=== PATIENT | female | born 2000 | race African-American/Black ===

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

== ENCOUNTER 2018-02-10 00:10 | Emergency (ER) | payer BC ==
[2018-02-10] MEDS ORDERED: levETIRAcetam In NaCl (Iso-Os) 1,500 MG in Premix Bag 1 BAG IVPB SCH (00:45)
[2018-02-10 02:03] LABS: #Basophils 0.1 thou/uL (0.0-0.2); #Eosinphils 0.1 thou/uL (0.0-0.7); #Lymphocytes 1.8 thou/uL (1.20-3.40); #Monocytes 0.5 thou/uL (0.11-0.59); #Neutrophils 4.6 thou/uL (1.40-6.50); %Basophils 0.9 % (0.0-1.0); %Lymphocytes 25.5 % (28.0-48.0); %Monocytes 7.3 % (0.0-4.0); %Neutrophils 64.3 % (31.0-61.0); Hemoglobin 15.3 g/dL (12.0-16.0); Mean Corpuscular HGB CONC 33.5 g/dL (32.0-36.0); Mean Corpuscular Hemoglobin 29.4 pg (25.0-35.0); Mean Corpuscular Volume 87.6 fL (78.0-98.0); Mean Platelet Volume 7.7 fL (7.4-10.4); Platelet Count 310 thou/uL (130-400); RBC Distribution Width 12.8 % (11.5-14.5); Red Blood Cell (RBC) Count 5.22 mill/uL (4.00-5.20); White Blood Cell (WBC) Count 7.2 thou/uL (4.8-10.8)
[2018-02-10 02:10] LABS: ALT (SGPT) 19 U/L (8-55); AST (SGOT) 19 U/L (5-30); Albumin 4.8 g/dL (3.5-5.0); Alkaline Phosphatase 94 U/L (40-150); Anion Gap 11 mmol/L (10-20); BUN (Urea Nitrogen) 8 mg/dL (8.4-21.0); Bilirubin, Total 0.6 mg/dL (0.2-1.2); Calc. Creatinine Clearance 0 mL/min (70-130); Calcium 9.8 mg/dL (7.8-10.44); Carbon Dioxide 25 mmol/L (22-29); Chloride 108 mmol/L (98-107); Estimated GFR-MDRD Greater than 90; Globulin 3.6 g/dL (2.4-3.5); Glucose 93 mg/dL (70-105); Potassium 3.7 mmol/L (3.5-5.1); Protein, Total 8.4 g/dL (6.0-8.3); Sodium 140 mmol/L (136-145)
== END 2018-02-10 03:45 | disposition home or self-care (01) ==
LOC: ERS 00:10
DX: R56.9 Unspecified convulsions (principal)
CPT/HCPCS: 80053; 85025; 96365; J1953

== ENCOUNTER 2018-02-15 01:53 | Inpatient (IN) | payer BC ==
[2018-02-15] MEDS ORDERED: Lorazepam 2 MG/ML VIAL ONE ×2 (02:23→03:19)
[2018-02-15 02:56] LABS: #Eosinphils 0.2 thou/uL (0.0-0.7); #Lymphocytes 1.6 thou/uL (1.20-3.40); #Monocytes 0.8 thou/uL (0.11-0.59); #Neutrophils 4.9 thou/uL (1.40-6.50); %Basophils 0.5 % (0.0-1.0); %Eosinophils 2.1 % (0.0-10.0); %Lymphocytes 21.5 % (28.0-48.0); %Neutrophils 65.9 % (31.0-61.0); Mean Corpuscular HGB CONC 34.3 g/dL (32.0-36.0); Mean Corpuscular Hemoglobin 29.8 pg (25.0-35.0); Mean Corpuscular Volume 86.9 fL (78.0-98.0); Mean Platelet Volume 7.5 fL (7.4-10.4); Platelet Count 314 thou/uL (130-400); RBC Distribution Width 12.7 % (11.5-14.5); Red Blood Cell (RBC) Count 4.69 mill/uL (4.00-5.20); White Blood Cell (WBC) Count 7.5 thou/uL (4.8-10.8)
[2018-02-15 03:13] LABS: Bilirubin Negative (Negative); Blood, Urine Negative (Negative); Clarity TURBID (Clear); Glucose, Urine (Dipstick) Negative (Negative); Leukocyte Negative (Negative); Nitrite Negative (Negative); Pregnancy Test - Urine (BHCG) Negative (Negative); Pregu Control Background? CLEAR/WHITE (CLR/WHITE); Pregu Control Bar Appear? YES (CONTROL BAR); Protein, Urine (Dipstick) 30 mg/dL (Neg-Trace); Specific Gravity 1.025 (1.002-1.036); Specific Gravity, Urine 1.025 (1.002-1.036); pH, Urine 8.5 (5.0-9.0)
[2018-02-15 03:16] LABS: ALT (SGPT) 16 U/L (8-55); AST (SGOT) 14 U/L (5-30); Albumin 4.3 g/dL (3.5-5.0); Alkaline Phosphatase 81 U/L (40-150); Anion Gap 12 mmol/L (10-20); BUN (Urea Nitrogen) 8 mg/dL (8.4-21.0); Bilirubin, Total 0.5 mg/dL (0.2-1.2); Calc. Creatinine Clearance 0 mL/min (70-130); Calcium 9.5 mg/dL (7.8-10.44); Carbon Dioxide 24 mmol/L (22-29); Chloride 109 mmol/L (98-107); Estimated GFR-MDRD Greater than 90; Globulin 3.1 g/dL (2.4-3.5); Glucose 102 mg/dL (70-105); Potassium 3.7 mmol/L (3.5-5.1); Protein, Total 7.4 g/dL (6.0-8.3); Sodium 141 mmol/L (136-145)
[2018-02-15 03:29] LABS: Bacteria/HPF None Seen HPF (None Seen); Hyaline Casts/LPF 0-3 HYALINE CAST LPF (0-3 Hyaline); Pathc Cast-AUWi Flag 0.29 (0-2.49); Squamous Epithelial 0-3 HPF (0-3); WBC/HPF 0-3 HPF (0-3)
[2018-02-15] MEDS ORDERED: levETIRAcetam In NaCl (Iso-Os) 1,000 MG in Premix Bag 1 BAG IVPB SCH (03:30)
--- NOTE | 2018-02-15 04:12 | PDOC.FPRHP ---
- History of Present Illness Chief Complaint: seizure History of Present Illness: Pt is a 17 y/o F with seizure disorder presenting for seizures. In regard to this seizures, she states the first one she ever experienced was 2- 3 months ago. She says they are usually stressed induced and she has been stressed by work and school recently. She has seen neuro at [facility] in December and has been unable to contact them this week. She has been to several urgent cares and ED's in town this week and "usually" is given Keppra loading dose and sent home. Today, whe had 2 observed seizures at work that were <5mins long. She had another seizure at a friend's house she is temporarily staying with that lasted close to 20mins per the friend. She had 2 additional seizures in the ED tonight that were 3-4 mins long and resolved with Ativan. Symptoms of her seizures include R Hand tremors, nystagmus, and LOC and seem to be consistent in presentation. She does state she can feel when the seizures are about to begin and the only provoking factor has been stress. She reportedly had an EEG recently at [facility]. MRA in Nov revealed no abnormality as well as several brain CT's in October in [facility]. She is currently feeling "groggy" after receiving Ativan 2mg, and is postictal. Denies any SOB, Chest pain, vision changes, focal weakness, dysuria. Does endorse recent nasal congestion and BHANDARI. - Allergies/Adverse Reactions Allergies Allergy/AdvReac Type Severity Reaction Status Date / Time No Known Allergies Allergy Verified 11/14/17 05:13 - Home Medications Medication Instructions Recorded Confirmed Type Ibuprofen 3 - 4 tab PO Q6HR PRN 10/27/17 11/14/17 History Ibuprofen [Motrin IB] 200 mg PO Q6H PRN tab 11/15/17 Rx - History PMHx: seizures, anxiety PSHx: nonsmoker, no ETOH, no recreational drug use FHx: adopted and unsure Social: n/a - Review of Systems General: denies: fever/chills, weight/appetite/sleep changes, night sweats, fatigue Eyes: denies: eye pain, vision changes ENT: reports: nasal congestion. denies: rhinorrhea Respiratory: reports: congestion, shortness of breath. denies: cough Cardiovascular: denies: chest pain, palpitation, edema Gastrointestinal: denies: nausea, vomiting, diarrhea, constipation, abdominal pain Genitourinary: denies: incontinence Skin: denies: rashes Musculoskeletal: denies: pain, tenderness, stiffness, swelling Neurological: reports: seizure. denies: numbness, syncope, weakness Psychological: reports: anxiety. denies: depression - Vital signs BP: [] HR: [] RR: [] Tmax: [] Pox: []% on [] Wt: [] - Physical Exam Constitutional: NAD, awake, alert and oriented HEENT: normocephalic and atraumatic, PERRLA, EOMI, conjunctiva clear, no scleral icterus, grossly normal vision, normal nasal mucosa, oropharynx clear Neck: supple, FROM, trachea midline Chest: no-tender to palpation Heart: RRR, normal S1/S2, no murmurs/rubs/gallops Lungs: no respiratory distress, good air movement, no rales/rhonchi, no wheezing , no retractions Abdomen: soft, non-tender, bowel sounds present Musculoskeletal: normal structure Neurological: no focal deficit, CN II-XII intact, normal sensation, DTRs 2+, other (A & O x3, decreased alertness) Skin: no rash/lesions, good turgor Heme/Lymphatic: no unusual bruising or bleeding, no purpura Psychiatric: normal mood and affect, good judgment and insight FMR H&P: Results - Labs Result Diagrams: 02/15/18 02:46 02/15/18 02:46 Lab results: WBC 7.5 thou/uL (4.8-10.8) 02/15/18 02:46 Hgb 14.0 g/dL (12.0-16.0) 02/15/18 02:46 Hct 40.8 % (36.0-47.0) 02/15/18 02:46 MCV 86.9 fL (78.0-98.0) 02/15/18 02:46 Plt Count 314 thou/uL (130-400) 02/15/18 02:46 Neutrophils % 65.9 % (31.0-61.0) H 02/15/18 02:46 Sodium 141 mmol/L (136-145) 02/15/18 02:46 Potassium 3.7 mmol/L (3.5-5.1) 02/15/18 02:46 Chloride 109 mmol/L (98-107) H 02/15/18 02:46 Carbon Dioxide 24 mmol/L (22-29) 02/15/18 02:46 BUN 8 mg/dL (8.4-21.0) L 02/15/18 02:46 Creatinine 0.74 mg/dL (0.6-1.1) 02/15/18 02:46 Glucose 102 mg/dL (70-105) 02/15/18 02:46 Calcium 9.5 mg/dL (7.8-10.44) 02/15/18 02:46 Total Bilirubin 0.5 mg/dL (0.2-1.2) 02/15/18 02:46 AST 14 U/L (5-30) 02/15/18 02:46 ALT 16 U/L (8-55) 02/15/18 02:46 Alkaline Phosphatase 81 U/L (40-150) 02/15/18 02:46 Serum Total Protein 7.4 g/dL (6.0-8.3) 02/15/18 02:46 Albumin 4.3 g/dL (3.5-5.0) 02/15/18 02:46 Urine Ketones Negative mg/dL (Negative) 02/15/18 02:59 Urine Blood Negative (Negative) 02/15/18 02:59 Urine Nitrite Negative (Negative) 02/15/18 02:59 Ur Leukocyte Esterase Negative (Negative) 02/15/18 02:59 Urine RBC 4-6 HPF (0-3) 02/15/18 02:59 Urine WBC 0-3 HPF (0-3) 02/15/18 02:59 Ur Squamous Epith Cells 0-3 HPF (0-3) 02/15/18 02:59 Urine Bacteria None Seen HPF (None Seen) 02/15/18 02:59 FMR H&P: A/P - Problem List (1) Seizure disorder Current Visit: Yes Status: Acute Code(s): G40.909 - EPILEPSY, UNSP, NOT INTRACTABLE, WITHOUT STATUS EPILEPTICUS (2) Obesity (BMI 30-39.9) Current Visit: No Status: Chronic Code(s): E66.9 - OBESITY, UNSPECIFIED (3) Anxiety Current Visit: Yes Status: Acute Code(s): F41.9 - ANXIETY DISORDER, UNSPECIFIED - Plan Disposition/LOS: 1. Seizure Disorder - Recently switched from Keppra by PCP to Dilantin and has titrated up to 300mg nightly, which she did take today. S/p 3mg Ativan in ED and loading dose of Keppra. Will continue Keppra 500mg BID and Dilantin and use Ativan PRN for seizure activity. Seizure precautions. Prolactin was elevated in ED. Unknown etiology and will require a neurology consultation for additional recommendations. Will also need to obtain [facility] records for recent workup. No metabolic causes identified; order TSH. VSS. 2. Anxiety - Never been treated, increased lately and pt believes it plays a part of her seizures. 3. Elevated BMI
[2018-02-15] MEDS ORDERED: Ondansetron PF 4 MG/2 ML Vial IVP PRN (04:41)
[2018-02-15] MEDS ORDERED: Ondansetron ODT 4 MG TAB SL PRN (04:41)
[2018-02-15] MEDS ORDERED: Acetaminophen 325 MG TAB PO PRN (04:41)
[2018-02-15] MEDS ORDERED: Sodium Chloride 0.9% 1,000 ML IV SCH (04:41)
[2018-02-15] MEDS ORDERED: Lorazepam 2 MG/ML VIAL SLOW IVP PRN ×2 (04:42→04:47)
[2018-02-15 05:18] VITALS: BMI 35.3
[2018-02-15] MEDS: Enoxaparin Sodium 30 MG/0.3 ML SYRINGE SC SCH (09:15)
--- NOTE | 2018-02-15 12:06 | PRG ---
DATE OF SERVICE: 02/15/2018 SUBJECTIVE: I have reviewed the history and physical of Dr. Terry Zee and discussed the case with him. I agree with his assessment and plan. Briefly, Ms. Beebe is a pleasant 17-year-old lady with a history of seizure disorder workup at an outside institution. Despite using her Keppra, she has had several seizures over the last several days, and she was admitted for further treatment and evaluation. This morning, she is awake, alert, in no distress. OBJECTIVE: VITAL SIGNS: Blood pressure is 126/73, respirations are 16 and not labored, her pulse rate is 95. She is afebrile and her room air pulse ox is 98%. GENERAL: She is an obese, pleasant female, who again is awake and, alert, in no distress. HEENT: Ears, nose, and throat; no erythema or exudate. NECK: Supple. CARDIAC: Her heart rhythm is regular without gallop or murmur noted. LUNGS: Clear. No rales or wheezes noted. ABDOMEN: Flat, soft. No guarding, rebound, or rigidity. EXTREMITIES: No edema. NEUROLOGIC: No focal deficits. LABORATORY DATA: Her CBC; white count is 7500, hemoglobin is 14, hematocrit is 40.8 with an MCV of 86.9. Chemistry; sodium 141, potassium 3.7, chloride 109, bicarb 24, BUN 8, creatinine 0.74. Her prolactin level is elevated at 52.51. Urinalysis is positive for protein. ASSESSMENT: Seizure disorder with poor control. PLAN: Admit, observe, adjust medications. We have continued Keppra and have added Dilantin. Job ID: [id number]
[2018-02-15 14:18] LABS: Amphetamine Not Detected (NotDetected); Barbiturates Screen Detected (NotDetected); Benzodiazepine Screen Detected (NotDetected); Cocaine Metabolite Screen Not Detected (NotDetected); Medtox Control Line Valid? VALID (VALID); Medtox Reader # READER 1; Methadone Not Detected (NotDetected); Methamphetamine Not Detected (NotDetected); Opiate Screen Not Detected (NotDetected); Oxycodone Screen Not Detected (NotDetected); Phencyclidine (PCP) Not Detected (NotDetected); THC/Cannabinoid Screen Not Detected (NotDetected); Tricyclic Screen Not Detected (NotDetected)
[2018-02-15] MEDS ORDERED: levETIRAcetam 500 MG TAB PO SCH (16:00)
[2018-02-15] MEDS ORDERED: Lorazepam 1 MG TAB PO SCH (18:00)
--- NOTE | 2018-02-15 18:46 | MRI ---
MRI BRAIN WITH AND WITHOUT CONTRAST: 02/15/18 Multiplanar and multisequential imaging brain obtained. Postcontrast images obtained administering 12 mL of Multihance IV. INDICATIONS: Seizures. Comparison made to MRI of brain 10/27/17. Ventricles have normal size and position. There is no evidence of mass or edema. No evidence of white matter abnormality. Hippocampal formations appear symmetric. Visualized internal carotid arteries an d cerebral arteries show flow voids. Dural venous sinuses are patent. No abnormal enhancement identified. IMPRESSION: Unremarkable MRI of brain. POS: HAMIDA
[2018-02-15] MEDS: levETIRAcetam 500 MG TAB PO SCH (20:11)
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
[2018-02-16] MEDS: Ondansetron ODT 4 MG TAB PO PRN (01:37)
[2018-02-16] MEDS: Acetaminophen 325 MG TAB PO PRN (01:37)
--- NOTE | 2018-02-16 05:40 | PDOC.FM ---
- Subjective Subjective: Pt reports feeling well this AM, only reports two brief focal seizures of similar quality to previous ones overnight. no other complaints at this time. no fever/chills, no sob, no cp - Objective MAR Reviewed: Yes Vital Signs & Weight: Vital Signs (12 hours) Temp Pulse Resp BP Pulse Ox 02/16/18 04:00 98.6 F 93 24 H 124/76 95 02/16/18 00:00 98.9 F 97 18 114/64 96 02/15/18 19:22 98.2 F 101 H 16 117/61 97 Weight Weight 111.493 kg I&O: 02/14/18 02/15/18 02/16/18 06:59 06:59 06:59 Intake Total 125 1100 Output Total 100 400 Balance 25 700 Result Diagrams: 02/15/18 02:46 02/15/18 02:46 Phys Exam - Physical Examination Constitutional: NAD HEENT: moist MMs, sclera anicteric Neck: no nodes, no JVD Respiratory: no wheezing, clear to auscultation bilateral Cardiovascular: RRR, no significant murmur Gastrointestinal: soft, non-tender Musculoskeletal: no edema, pulses present Neurological: normal sensation, moves all 4 limbs Psychiatric: normal affect Skin: no rash, normal turgor Dx/Plan (1) Anxiety Code(s): F41.9 - ANXIETY DISORDER, UNSPECIFIED Status: Acute (2) Seizure disorder Code(s): G40.909 - EPILEPSY, UNSP, NOT INTRACTABLE, WITHOUT STATUS EPILEPTICUS Status: Acute (3) Obesity (BMI 30-39.9) Code(s): E66.9 - OBESITY, UNSPECIFIED Status: Chronic - Plan Plan: Seizure Disorder A- On Keppra and dilantin (with extra dose last night). MRI unremarkable. Dilantin not yet in therapeutic lvls. Prolactin was elevated in ED which could be indicative of recent seizure. No metabolic causes identified P-Continue Keppra 1000mg BID -continue Dilantin (will defer to neuro for dosage adjustments) -await [facility] records for recent workup -f/u neuro recs -f/u EEG -Seizure precautions Anxiety A- Never been treated, increased lately and pt believes it plays a part of her seizures P- will monitor, recommend outpatient f/u Obesity -encourage healthy diet/exercise -outpt f/u
[2018-02-16] MEDS: Enoxaparin Sodium 30 MG/0.3 ML SYRINGE SC SCH (09:07)
[2018-02-16] MEDS: levETIRAcetam 500 MG TAB PO SCH ×2 (09:08→20:39)
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
--- NOTE | 2018-02-17 05:55 | PDOC.FM ---
- Subjective Subjective: Pt reports feeling well. reports she had one focal seizure last night. Pt has no complaints at this time. no fever/chills, no sob/cough - Objective MAR Reviewed: Yes Vital Signs & Weight: Vital Signs (12 hours) Temp Pulse Resp BP Pulse Ox 02/17/18 04:00 98.7 F 68 23 H 128/83 97 02/17/18 00:00 98.5 F 85 24 H 118/55 L 98 02/16/18 19:22 98.8 F 89 25 H 108/57 L 96 Weight Weight 111.13 kg I&O: 02/15/18 02/16/18 02/17/18 06:59 06:59 06:59 Intake Total 125 1100 Output Total 100 400 Balance 25 700 Result Diagrams: 02/15/18 02:46 02/15/18 02:46 Phys Exam - Physical Examination Constitutional: NAD HEENT: moist MMs, sclera anicteric Neck: no nodes, no JVD Respiratory: no wheezing, clear to auscultation bilateral Cardiovascular: RRR, no significant murmur Gastrointestinal: soft, non-tender Musculoskeletal: no edema, pulses present Neurological: normal sensation, moves all 4 limbs Lymphatic: no nodes Psychiatric: normal affect, A&O x 3 Skin: no rash, normal turgor Dx/Plan (1) Anxiety Code(s): F41.9 - ANXIETY DISORDER, UNSPECIFIED Status: Acute (2) Seizure disorder Code(s): G40.909 - EPILEPSY, UNSP, NOT INTRACTABLE, WITHOUT STATUS EPILEPTICUS Status: Acute (3) Obesity (BMI 30-39.9) Code(s): E66.9 - OBESITY, UNSPECIFIED Status: Chronic - Plan Plan: Seizure Disorder A- On Keppra and dilantin (again with extra dose last night). MRI and EEG unremarkable. Dilantin not yet in therapeutic lvls as of yesterday. Lvl pending today. Prolactin was elevated in ED which could be indicative of recent seizure. No metabolic causes identified P-Continue Keppra 1000mg BID -continue Dilantin (will defer to neuro for dosage adjustments) -f/u neuro recs -Seizure precautions -plan for discharge after dilantin lvls are therapeutic per neuro recs ( appreciate the recommendations) Anxiety A- pt believes it plays a part of her seizures. P- will monitor, recommend outpatient f/u Obesity -encourage healthy diet/exercise -outpt f/u
[2018-02-17] MEDS: Ondansetron ODT 4 MG TAB PO PRN (06:10)
[2018-02-17] MEDS: Enoxaparin Sodium 30 MG/0.3 ML SYRINGE SC SCH (09:47)
[2018-02-17] MEDS: levETIRAcetam 500 MG TAB PO SCH ×2 (09:47→21:18)
--- NOTE | 2018-02-17 13:50 | PRG ---
DATE OF SERVICE: 02/17/2018 TYPE OF REPORT: Followup Neurology. PRESENT ILLNESS: This is a Neurology followup for seizure disorder. She states that she had one brief episode during the night, which is like her typical seizure. She says that she gets an aura of feeling strange and then, the right arm will twitch a little. She states that it has gotten a lot better and she is having less frequent spells. She is currently on Keppra and Dilantin. OBJECTIVE: VITAL SIGNS: Blood pressure 109/68, respiratory rate 19, pulse 85, and temperature 97. NEUROLOGIC: Awake, alert, and oriented x3. No nystagmus. DTRs 2+. Toes downgoing. Motor 5/5 strength. HEENT: Negative. LUNGS: Clear. HEART: No murmurs or gallops. ABDOMEN: Benign. EXTREMITIES: No clubbing, cyanosis, or edema. LABORATORY DATA: Showed a Dilantin level today, which is 8.2, it is still slightly low, but it is improving. Therapeutic is 10 to 20. She is currently on Keppra 1000 mg p.o. twice a day and she is on Dilantin extended release, she was on 300 mg daily. It appears that she was recently increased to 300 mg p.o. twice a day. Her recent EEG and MRI of the brain with and without contrast were normal. IMPRESSION: Complex partial seizure disorder. Note, the patient had a head injury 2 or 3 years ago, which may have resulted in a seizure disorder. PLAN: Recommend to continue with Keppra 1000 mg twice a day. Note that she has been started on Dilantin extended release 300 mg p.o. twice a day, and she did receive an extra dose of fosphenytoin 300 mg IV today. Also, we will get a followup Dilantin level in the morning. If it is in therapeutic range and she is not having seizures, she could be discharged from a neurological view point and she needs to follow up with Neurology when she gets out. Risks and benefit of medicines have been discussed with her and she is advised to not drive. Other seizure precautions discussed. No tub baths. No unprotected heights. Avoid dangerous machinery. She should not lift by herself or stay by herself due to the seizures. I recommend that her Dilantin level be followed closely as well as liver profile and CBC and she should have a Dilantin level within a week after she gets out since the dose has been recently increased and it is not clear how much she will need at this point, as the level could change. Discussed with the patient. Job ID: [id number]
[2018-02-18] MEDS: diphenhydrAMINE 25 MG CAP PO PRN ×2 (03:16→19:54)
[2018-02-18] MEDS: Acetaminophen 325 MG TAB PO PRN (03:16)
--- NOTE | 2018-02-18 05:55 | PDOC.FM ---
- Subjective Subjective: Pt rested well overnight with no seizures. Pt reports feeling ready to go home. No fever/chills, no cp no sob - Objective MAR Reviewed: Yes Vital Signs & Weight: Vital Signs (12 hours) Temp Pulse Resp BP Pulse Ox 02/18/18 04:00 98.0 F 83 14 111/61 95 02/18/18 00:00 98.2 F 92 15 116/59 L 100 02/17/18 20:00 98.8 F 92 14 123/74 100 Weight Weight 107.048 kg I&O: 02/16/18 02/17/18 02/18/18 06:59 06:59 06:59 Intake Total 1100 240 50 Output Total 400 Balance 700 240 50 Result Diagrams: 02/15/18 02:46 02/15/18 02:46 Phys Exam - Physical Examination Constitutional: NAD HEENT: moist MMs, sclera anicteric Neck: no nodes, no JVD Respiratory: no wheezing, no rales Cardiovascular: RRR, no significant murmur Gastrointestinal: soft, non-tender Musculoskeletal: no edema, pulses present Neurological: non-focal, normal sensation Psychiatric: normal affect, A&O x 3 Skin: no rash, normal turgor Dx/Plan (1) Anxiety Code(s): F41.9 - ANXIETY DISORDER, UNSPECIFIED Status: Acute (2) Seizure disorder Code(s): G40.909 - EPILEPSY, UNSP, NOT INTRACTABLE, WITHOUT STATUS EPILEPTICUS Status: Acute (3) Obesity (BMI 30-39.9) Code(s): E66.9 - OBESITY, UNSPECIFIED Status: Chronic - Plan Plan: Seizure Disorder A- On Keppra and dilantin (again with extra dose last night). MRI and EEG unremarkable. Dilantin is now in therapeutic range. Prolactin was elevated in ED which could be indicative of recent seizure. No metabolic causes identified P-Continue Keppra 1000mg BID -continue Dilantin -Seizure precautions -possible discharge today as dilantin lvls are therapeutic per neuro recs ( appreciate the recommendations) Anxiety A- pt believes it plays a part of her seizures. P- will monitor, recommend outpatient f/u Obesity -encourage healthy diet/exercise -outpt f/u Addendum - Attending - Attending Attestation Date/Time: 02/18/18 1226 I personally evaluated the patient and discussed the management with Dr. Mauricio and Dr. Ford I agree with the History, Examination, Assessment and Plan documented above with any addition or exceptions noted below. 17 yo female with hx of seizure disorder admitted for uncontrolled seizure disorder with possible status epilepticus Doing well since increasing medications. Still with daily partial seizure. VS reviewed. Labs reviewed. Imaging reviewed. 1. Status epilepticus: Reported to have 5 seizures on day of admission. One reported > 5 minutes. Now resolved. 2. Partial Complex Seizure disorder: Initially started in October 2017. Past hx of head injury. No other known risk factors. Neuro following. Thus far have increased Keppra to 1000mg BID and started Dilantin ER 300mg BID. UPT negative. Discussed seizure precautions. Last seizure last night. Therapuetic drug levels noted today. Will monitor throughout the day. If no seizure like active will d/c after 5 pm. Needs contraception. Has neuro appt in June. Needs CBC, drug levels, and CMP next week. 3. BMI 34: Patient education. Follow up with PCP. Dispo: Monitor throughout the day. Possible d/c. Needs PCP appt prior to d/c. Mireille
--- NOTE | 2018-02-18 08:02 | PRG ---
DATE OF SERVICE: 02/16/2018 ADDENDUM: Please see the note from Dr. Hakeem Mauricio, for which I agree. The patient was seen, evaluated, and discussed with the residents by bedside. This is a 17-year-old, who unfortunately is still having seizures despite dilantin being added, although her level is not quite therapeutic. She is being followed by Neurology. We will continue the Keppra, Dilantin, and Ativan p.r.n. It sounds like EEG came back normal as did the MRI. Appreciate Neurology's input and we will let them make the decisions as far as medications currently. Job ID: [id number]
--- NOTE | 2018-02-18 08:04 | PRG ---
DATE OF SERVICE: 02/17/2018 ADDENDUM: Please see the note from Dr. Mauricio, for which I agree. The patient was seen, evaluated, examined, and discussed with the residents. Unfortunately, she is still having seizures. Witnessed seizure last night by the nurses and apparently did not respond to a sternal rub when she was having it. It may be lasted up to 7 minutes. She took Dilantin 300 mg twice daily yesterday and still level is suboptimal this morning at 8.2. So per Neurology, want to wait until her level gets therapeutic and hopefully obviously less seizures, but otherwise we will continue the Keppra and Dilantin and then Ativan on a p.r.n. basis. Appreciate Neurology's input. Job ID: [id number]
[2018-02-18] MEDS: guaiFENesin ER 600 MG TAB PO SCH ×2 (08:46→19:54)
[2018-02-18] MEDS: levETIRAcetam 500 MG TAB PO SCH ×2 (08:46→19:54)
[2018-02-18] MEDS: Enoxaparin Sodium 30 MG/0.3 ML SYRINGE SC SCH (08:46)
[2018-02-19] MEDS: diphenhydrAMINE 25 MG CAP PO PRN (05:33)
--- NOTE | 2018-02-19 05:33 | PDOC.FM ---
- Subjective Subjective: Pt reports feeling well this AM. No auras or seizures overnight. Pt reports feeling well enough to go home and has no complaints at this time. No fever/chills, no seizure no syncope - Objective MAR Reviewed: Yes Vital Signs & Weight: Vital Signs (12 hours) Temp Pulse Resp BP Pulse Ox 02/19/18 04:00 98.5 F 85 17 109/62 98 02/19/18 00:00 97.9 F 76 18 113/61 98 02/18/18 19:49 98.6 F 82 17 109/61 95 Weight Weight 107.048 kg I&O: 02/17/18 02/18/18 02/19/18 06:59 06:59 06:59 Intake Total 984 650 5021 Output Total 2 500 Balance 240 288 750 Result Diagrams: 02/15/18 02:46 02/15/18 02:46 Phys Exam - Physical Examination Constitutional: NAD HEENT: moist MMs, sclera anicteric Neck: no nodes, no JVD Respiratory: no wheezing, no rales Cardiovascular: RRR, no significant murmur Gastrointestinal: soft, non-tender Musculoskeletal: no edema, pulses present Neurological: non-focal, normal sensation Psychiatric: normal affect, A&O x 3 Skin: no rash, normal turgor Dx/Plan (1) Anxiety Code(s): F41.9 - ANXIETY DISORDER, UNSPECIFIED Status: Acute (2) Seizure disorder Code(s): G40.909 - EPILEPSY, UNSP, NOT INTRACTABLE, WITHOUT STATUS EPILEPTICUS Status: Acute (3) Obesity (BMI 30-39.9) Code(s): E66.9 - OBESITY, UNSPECIFIED Status: Chronic - Plan Plan: Seizure Disorder A- On Keppra and dilantin (BID). MRI and EEG unremarkable. Dilantin is now in therapeutic range x2 days. Prolactin was elevated in ED which could be indicative of recent seizure. No metabolic causes identified P-Continue Keppra 1000mg BID -continue Dilantin 300mg BID -Seizure precautions -discharge today as dilantin lvls are therapeutic per neuro recs (appreciate the recommendations) -Pt has appointment set for PCP ([facility]) to have dilantin levels checked on at 2pm. Pt advised to refrain from work until then. Anxiety A- pt believes it plays a part of her seizures. P- will monitor, recommended outpatient f/u Obesity -encourage healthy diet/exercise -outpt f/u Addendum - Attending - Attending Attestation Date/Time: 02/19/18 5286 I personally evaluated the patient and discussed the management with Dr. Mauricio and Dr. Ford I agree with the History, Examination, Assessment and Plan documented above with any addition or exceptions noted below. 17 yo female with hx of seizure disorder admitted for uncontrolled seizure disorder with possible status epilepticus Did well overnight. No seizures or aura. Request d/c today due to issues with employment and school compliance. VS reviewed. Labs reviewed. Imaging reviewed. 1. Status epilepticus: Reported to have 5 seizures on day of admission. One reported > 5 minutes. Now resolved. 2. Partial Complex Seizure disorder: Initially started in October 2017. Past hx of head injury. No other known risk factors. Neuro following. Thus far have increased Keppra to 1000mg BID and started Dilantin ER 300mg BID. UPT negative. Discussed seizure precautions. Last seizure 02/18/18 1600. Therapuetic drug levels noted again today. Discussed concerns with possible need to increase Dilantin dosing. Patient very anxious and worried about social issues that she needs to attend to today. Request d/c. Understands risk and concerns. Has help at home. Needs contraception. Has neuro appt in June. Needs CBC, drug levels, and CMP next week. Reviewed triggers including stress and lack of sleep. 3. BMI 34: Patient education. Follow up with PCP. 4. Anxiety: Discussed outpatient evaluation. Discussed likely need for CBT and/ or medication for treatment. Discussed other forms of treatment including yoga and meditation. Dispo: Awaiting PCP appt for later this week, then ok to d/c. Discussed possible need to apply for medical leave for work and school to help with stress burden. Mireille
[2018-02-19 07:34] VITALS: BP 116/67; TEMP 97.9
[2018-02-19] MEDS: guaiFENesin ER 600 MG TAB PO SCH (09:03)
[2018-02-19] MEDS: levETIRAcetam 500 MG TAB PO SCH (09:03)
[2018-02-19] MEDS: Enoxaparin Sodium 30 MG/0.3 ML SYRINGE SC SCH (09:04)
--- NOTE | 2018-02-19 14:45 | EEG ---
Referring Physician: GILBERTO MCCORMICK EEG # [id number] TEST TYPE: ROUTINE PORTABLE INPATIENT REPORT: AN EEG USING THE INTERNATIONAL TEN-TWENTY SYSTEM OF ELECTRODE PLACEMENT WAS PERFORMED. The waking background consists of a well organized 9-10 hertz Alpha which is attenuated by eye opening. There is a great deal of 16-22 hertz Beta artifact. Note that the patient is on benzodiazepines. Photic stimulation and hyperventilation produced no abnormalities. There is occasional muscle artifact and eye movement artifact seen. There is no focal slowing nor epileptiform activity. During drowsiness there is occasional 5-6 hertz Theta seen diffusely. IMPRESSION: NORMAL EEG WHILE AWAKE AND DROWSY. 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
--- NOTE | 2018-02-20 07:53 | DIS ---
DATE OF ADMISSION: 02/15/2018 DATE OF DISCHARGE: 02/19/2018 RESIDENT: Hakeem Mauricio MD ADMITTING ATTENDING: Florentin Blackwood MD DISCHARGE ATTENDING: Rita Thayer MD CONSULTS: Neurology, Dr. Sarah Gonzalez. PROCEDURES: On 02/15/2018, brain MRI, impression, unremarkable MRI of the brain. PRIMARY DIAGNOSIS: Seizure disorder. SECONDARY DIAGNOSES: 1. Obesity. 2. Generalized anxiety disorder. DISCHARGE MEDICATIONS: 1. Acetaminophen 650 mg p.o. q.4 hours p.r.n. 2. Mucinex 600 mg p.o. q.12 hours. 3. Keppra 1000 mg p.o. b.i.d. 4. Phenytoin sodium 300 mg p.o. b.i.d. 5. Lorazepam 1 mg p.o. b.i.d. p.r.n. DISCONTINUED MEDICATIONS: 1. Phenytoin 300 mg p.o. at bedtime. 2. Diazepam 5 mg p.o. q.i.d. p.r.n. HISTORY OF PRESENT ILLNESS AND HOSPITAL COURSE: This is a 17-year-old female with history of seizure disorder for 3 months, who presented to the ER with onset of seizures. The patient was previously on Keppra and was seeing Neurology as outpatient, but had persistence of seizures and presented to the ER. The patient was seen by Neurology as inpatient, who recommended addition of Dilantin to medication regimen. Dilantin was titrated up with daily blood checks of Dilantin levels until levels were therapeutic, and the patient had not had any more seizures. The patient was given seizure precautions including advisement not to drive, do any heavy lifting or return to work until followup visits as outpatient, and the patient was discharged home with medications above as described and with plans for outpatient followup with Neurology as well as with a standing appointment in 2 days from discharge with primary care physician at [facility]. DISPOSITION: Stable. DISCHARGE INSTRUCTIONS: 1. Location: Home. 2. Diet: Regular diet. 3. Activity: As tolerated but with seizure precautions including, but not limited to those described above. 4. Followup: Follow up with primary care physician at [facility] in 2 days and with Neurology in 2 to 3 weeks. Job ID: [id number]
== END 2018-02-19 10:48 | disposition home or self-care (01) | DRG 101 ==
LOC: ERS 01:53 → INTOOBSV 03:25 → OBSVTOIN 03:25 → IMCU/EMU 03:25
PROVIDERS: ADMIT Student in an Organized Health Care Education/Training Program; ATTEND Student in an Organized Health Care Education/Training Program
DX: G40.209 Localization-related (focal) (partial) symptomatic epilepsy and epileptic syndromes with complex partial seizures, not intractable, without status epilepticus (principal); E66.9 Obesity, unspecified; F41.9 Anxiety disorder, unspecified; Z79.899 Other long term (current) drug therapy
CPT/HCPCS: 36415; 70553; 80053; 80177; 80185; 80306; 81003; 81015; 81025; 84146; 84443; 85025; 90471; 90686; 95816; 95819; 96361; 96374; 96375; 96376; G0008; J1650; J1953; J2060; J7050; Q0162; Q2009

== ENCOUNTER 2018-03-14 01:18 | Inpatient (IN) | payer BC ==
[2018-03-14 01:54] LABS: Lavender RECEIVED; Red RECEIVED
[2018-03-14] MEDS ORDERED: Acetaminophen 500 MG TAB ONE (02:10)
[2018-03-14] MEDS ORDERED: Ondansetron PF 4 MG/2 ML Vial ONE (02:11)
[2018-03-14 02:26] LABS: Hemoglobin 14.3 g/dL (12.0-16.0); Mean Corpuscular HGB CONC 33.1 g/dL (32.0-36.0); Mean Corpuscular Hemoglobin 28.8 pg (25.0-35.0); Mean Corpuscular Volume 87.1 fL (78.0-98.0); Mean Platelet Volume 8.1 fL (7.4-10.4); Platelet Count 235 thou/uL (130-400); RBC Distribution Width 13.1 % (11.5-14.5); Red Blood Cell (RBC) Count 4.95 mill/uL (4.00-5.20); White Blood Cell (WBC) Count 2.5 thou/uL (4.8-10.8)
[2018-03-14 02:35] LABS: ALT (SGPT) 70 U/L (8-55); AST (SGOT) 40 U/L (5-30); Albumin 4.3 g/dL (3.5-5.0); Alkaline Phosphatase 90 U/L (40-150); Anion Gap 15 mmol/L (10-20); BUN (Urea Nitrogen) 7 mg/dL (8.4-21.0); Bilirubin, Total 0.3 mg/dL (0.2-1.2); Calc. Creatinine Clearance 0 mL/min (70-130); Calcium 8.8 mg/dL (7.8-10.44); Carbon Dioxide 23 mmol/L (22-29); Chloride 107 mmol/L (98-107); Estimated GFR-MDRD Greater than 90; Glucose 89 mg/dL (70-105); Potassium 3.8 mmol/L (3.5-5.1); Protein, Total 7.3 g/dL (6.0-8.3); Sodium 141 mmol/L (136-145)
[2018-03-14 02:42] LABS: Band 8 % (5-11); Eosinophils 4 % (0-10); Lymphocytes 39 % (28-48); MDiff Complete? YES; Monocytes 14 % (0-4); Neutrophil 32 % (31-61); Reactive Lymphocytes 3 % (0-10)
[2018-03-14] MEDS ORDERED: levETIRAcetam In NaCl (Iso-Os) 1,000 MG in Premix Bag 1 BAG IVPB SCH (02:45)
[2018-03-14] MEDS ORDERED: Lorazepam 2 MG/ML VIAL ONE (03:01)
[2018-03-14] MEDS ORDERED: diphenhydrAMINE 25 MG CAP ONE (04:29)
[2018-03-14 04:51] LABS: Bilirubin Negative (Negative); Blood, Urine Negative (Negative); Clarity CLEAR (Clear); Glucose, Urine (Dipstick) Negative (Negative); Leukocyte Negative (Negative); Nitrite Negative (Negative); Pregnancy Test - Urine (BHCG) Negative (Negative); Pregu Control Background? CLEAR/WHITE (CLR/WHITE); Pregu Control Bar Appear? YES (CONTROL BAR); Protein, Urine (Dipstick) Trace mg/dL (Neg-Trace); Specific Gravity, Urine 1.031 (1.002-1.036); Urobilinogen 0.2 mg/dL (0.2-1.0)
[2018-03-14 04:52] LABS: Specific Gravity 1.031 (1.002-1.036)
--- NOTE | 2018-03-14 08:44 | RAD ---
SINGLE VIEW CHEST: Date: 03/14/18 COMPARISON: None. HISTORY: Seizure. FINDINGS: Single view of the chest shows a normal sized cardiomediastinal silhouette. There is no evidence of c onsolidation, mass, or pleural effusion. The bones are unremarkable. IMPRESSION: No evidence of acute cardiopulmonary disease. POS: TPC
--- NOTE | 2018-03-14 11:12 | PDOC.FPRHP ---
- History of Present Illness Chief Complaint: seizure History of Present Illness: Ms. Beebe presents to the ED today for breakthrough seizure She has been having daily seizures since december. She was diagnosed with complex partial seizures by her [employer]IPE [employer]CH[employer] APPRENTICE neurologist and placed on Keppra. continued to have seizures so she went to [facility] a few weeks ago and placed on Dilantin. Last night she had witnessed seizuresx3 by a friend with extended post ictal state. This was abnormal compared to her normal seizures so they decided to come in. Since starting the Dilantin she has been complaining of itching and throat pain. She denies any new headache, visual changes, weakness, numbness/tingling, fever/chills, or difficulty ambulating. ED Course: benydryl, ativan, keppra, tylenol, zofran, 1L NS, Neuro consult CBC, CMP, dilantin/keppra level - Allergies/Adverse Reactions Allergies Allergy/AdvReac Type Severity Reaction Status Date / Time phenytoin [From Dilantin] Allergy Verified 03/14/18 17:44 - Home Medications Medication Instructions Recorded Confirmed Type LORazepam [Lorazepam] 1 mg PO TID 02/15/18 03/14/18 History Acetaminophen [Tylenol Regular 650 mg PO Q4H PRN tab 02/18/18 03/14/18 Rx Strength] levETIRAcetam [Keppra] 2,500 mg PO BID #300 tab 03/15/18 Rx - History PMHx: complex partial seizures PSHx: none FHx: adopted Social: no TAD - Review of Systems General: reports: fatigue. denies: fever/chills Eyes: denies: eye pain, vision changes ENT: denies: nasal congestion, rhinorrhea Respiratory: denies: cough, congestion, shortness of breath Cardiovascular: denies: chest pain, palpitation, edema Gastrointestinal: denies: nausea, vomiting, diarrhea Genitourinary: denies: incontinence Skin: denies: rashes, lesions Musculoskeletal: denies: pain, tenderness Neurological: reports: seizure. denies: numbness, syncope, weakness - Vital signs BP: 150/88 HR: 98 RR: 19 Tmax: 98.8 Pox: 98% on RA Wt: 99.79kg - Physical Exam Constitutional: NAD, awake, alert and oriented HEENT: normocephalic and atraumatic, EOMI, grossly normal vision, grossly normal hearing, MMM Neck: supple, trachea midline Chest: no-tender to palpation, no lesions Heart: RRR, normal S1/S2, no murmurs/rubs/gallops Lungs: CTAB, no respiratory distress Abdomen: soft, non-tender Musculoskeletal: normal structure, normal tone, ROM grossly normal Neurological: no focal deficit, CN II-XII intact, normal sensation Skin: no rash/lesions Heme/Lymphatic: no unusual bruising or bleeding Psychiatric: normal mood and affect, good judgment and insight, intact recent and remote memory FMR H&P: Results - Labs Result Diagrams: 03/14/18 01:46 03/14/18 01:46 Lab results: WBC 2.5 thou/uL (4.8-10.8) L 03/14/18 01:46 Hgb 14.3 g/dL (12.0-16.0) 03/14/18 01:46 Hct 43.1 % (36.0-47.0) 03/14/18 01:46 MCV 87.1 fL (78.0-98.0) 03/14/18 01:46 Plt Count 235 thou/uL (130-400) 03/14/18 01:46 Band Neuts % (Manual) 8 % (5-11) 03/14/18 01:46 Sodium 141 mmol/L (136-145) 03/14/18 01:46 Potassium 3.8 mmol/L (3.5-5.1) 03/14/18 01:46 Chloride 107 mmol/L (98-107) 03/14/18 01:46 Carbon Dioxide 23 mmol/L (22-29) 03/14/18 01:46 BUN 7 mg/dL (8.4-21.0) L 03/14/18 01:46 Creatinine 0.81 mg/dL (0.6-1.1) 03/14/18 01:46 Glucose 89 mg/dL (70-105) 03/14/18 01:46 Calcium 8.8 mg/dL (7.8-10.44) 03/14/18 01:46 Total Bilirubin 0.3 mg/dL (0.2-1.2) 03/14/18 01:46 AST 40 U/L (5-30) H 03/14/18 01:46 ALT 70 U/L (8-55) H 03/14/18 01:46 Alkaline Phosphatase 90 U/L (40-150) 03/14/18 01:46 Serum Total Protein 7.3 g/dL (6.0-8.3) 03/14/18 01:46 Albumin 4.3 g/dL (3.5-5.0) 03/14/18 01:46 Urine Ketones 40 mg/dL (Negative) H 03/14/18 03:45 Urine Blood Negative (Negative) 03/14/18 03:45 Urine Nitrite Negative (Negative) 03/14/18 03:45 Ur Leukocyte Esterase Negative (Negative) 03/14/18 03:45 FMR H&P: A/P - Problem List (1) Complex partial seizures Current Visit: Yes Status: Acute Code(s): G40.209 - LOCAL-REL SYMPTC EPI W CMPLX PRT SEIZ,NOT NTRCT,W/O STAT EPI Qualifiers: Epilepsy type: partial symptomatic (2) Encounter for monitoring Dilantin therapy Current Visit: Yes Status: Acute Code(s): Z51.81 - ENCOUNTER FOR THERAPEUTIC DRUG LEVEL MONITORING; Z79.899 - OTHER FAMILY NURSE PRACTITIONER (CURRENT) DRUG THERAPY - Plan complex partial seizure disorder - no seizures since arriving at hospital, s/p 1g keppra, 1mg ativan - continue home dose keppra, ativan prn for seizures - neurology consulted from ED, appreciate recs - admit to stroke with seizure precautions Dilantin reaction - non toxic level in ED - DC dilantin, continue to monitor code: full ppx: lovenox Disposition/LOS: monitor on stroke, adjust anti-seizure medications FMR H&P: Upper Level - Pertinent history Dilma is a 17 yo F with PMHx complex partial and rare tonic clonic seizure who presents to ED for concern of persistent seizures. She was recently started on Dilantin at an urgent care in addition to her Keppra regimen because she could not get in with her neurologist until June. She started to have itching and throat pain on the Dilantin and continued to have breakthrough seizures despite it. She reports she gets a headache behind her R eye before she has a seizure. A friend that is often with her tells her that her seizures last 2-5 minutes with a 2-3 minute post ictal. It is typically her R hand twitching and eyes "go weird." She has had 3 tonic clonic seizures in her life, last one was in February. - Pertinent findings Labs and vitals reviewed and WNL Gen: awake, alert, oriented HEENT: NCAT, MMM CV: RRR, no murmur RESP: CTAB ABD: soft, nondistended, nontender NEURO: Symmetrical facial movements, strength 5/5 throughout, sensation intact throughout - Plan Date/Time: 03/14/18 1104 17 yo F with seizure d/o here s/p recurrent seizures that have failed new drug regimen 1. Seizure d/o with breakthrough seizures - Suspected allergy to Dilantin - s/p loading dose of Keppra in ED, resume home dose - NPO except meds - Dr. Overton consulted 2. Anxiety - Home lorazepam I, Debora Holliday MD, PGY-3, have evaluated this patient and agree with findings/ plan as outlined by chief of internal medicine resident. Pertinent changes/additions are listed here. Addendum - Attending - Attending Attestation Date/Time: 03/14/18 1349 I personally evaluated the patient and discussed the management with Dr. Hair. I agree with the History, Examination, Assessment and Plan documented above with any addition or exceptions noted below. The patient presented with multiple seizures. She has been having daily seizures and was on keppra and dilantin got added to the regimen. She states she started having a reaction to the dilantin with included a rash and itching. She had 3 seizures back to back and her friend called ems. We will be consulting neurology. Stop dilantin. Continue Keppra.
[2018-03-14] MEDS ORDERED: Acetaminophen 325 MG TAB PO PRN ×2 (15:12→15:20)
[2018-03-14] MEDS ORDERED: diphenhydrAMINE 25 MG CAP PO SCH (15:15)
[2018-03-14] MEDS ORDERED: Lorazepam 2 MG/ML VIAL SLOW IVP PRN (15:20)
[2018-03-14] MEDS ORDERED: Ondansetron ODT 4 MG TAB PO PRN (15:20)
[2018-03-14] MEDS ORDERED: Ondansetron PF 4 MG/2 ML Vial IVP PRN (15:20)
[2018-03-14 16:10] VITALS: BMI 35.7
[2018-03-14] MEDS ORDERED: Lorazepam 1 MG TAB PO PRN (17:27)
[2018-03-14] MEDS ORDERED: levETIRAcetam 500 MG TAB PO SCH (21:00)
[2018-03-14] MEDS: levETIRAcetam 500 MG TAB PO SCH (21:16)
--- NOTE | 2018-03-15 00:44 | CON ---
DATE OF CONSULTATION: 03/14/2018 CONSULTING PHYSICIAN: Hospitalist Services. IMPRESSION: 1. Recurrent complex partial seizures. 2. 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 PLAN: 1. Discontinue Dilantin. 2. Solu-Medrol 250 mg IV tonight and continue oral steroids as an outpatient. 3. Increase Keppra to 2500 mg twice a day given her serum level was only 26. HISTORY OF PRESENT ILLNESS: Ms. Beebe is a 17-year-old student who has a history of seizures starting back in December. She has been followed by Dr. Lynch at [facility]. She initially started on Keppra and had continued breakthrough complex partial seizures. She had a Dilantin about two weeks ago. She started developing a rash over the last week. She also complains of some sore throat, but no oral lesions. She continued to take her medicine, but was advised to go to the emergency room for evaluation. She was subsequently admitted. She has not had any further seizures reported since admission. PAST MEDICAL HISTORY: Positive for head injury, but otherwise unremarkable. ALLERGIES: DILANTIN. MEDICATIONS: 1. Keppra. 2. Dilantin. PAST SURGICAL HISTORY: Negative. PSYCHIATRIC HISTORY: Negative. SOCIAL HISTORY: She drinks socially. Denies any drug use. FAMILY HISTORY: Not significant. REVIEW OF SYSTEMS: GENERAL: No complaint of headache, blurred vision, or dizziness. No neck pain or sore throat. No chest pain or shortness of breath. No abdominal pain, cramps, or diarrhea. No joint pain. Positive for a pruritic rash over her extremities. NEUROLOGIC: No complaints of lateralized weakness or numbness. PHYSICAL EXAMINATION: GENERAL: She is a large young woman, lying in bed, in no acute distress. VITAL SIGNS: Blood pressure 107/73, pulse 118, respirations 19, temperature 98.8. HEENT: Pupils are equal and reactive. Conjunctivae clear. Oropharynx clear. NECK: Supple. No lymphadenopathy noted. ABDOMEN: Soft and nontender. EXTREMITIES: Positive for diffuse rash that is fairly dense, especially over the upper extremities. NEUROLOGIC: She is alert and appropriate. Her speech is fluent and clear. Cranial nerves II through XII are intact. Motor exam shows equal strength. Her sensation is intact to light touch. No tremor or abnormal movements were noted. Gait was not tested at this time. LABORATORY DATA: EKG shows sinus tachycardia. Dilantin level is 14. Keppra level is 26. SUMMARY: The patient needs to be taken off her Dilantin immediately. She can be placed on steroids and hopefully the rash will not progress. Given her subtherapeutic Keppra level of 26, I would go ahead and push dose up. She can follow up with her primary neurologist as an outpatient. Job ID: [id number]
[2018-03-15] MEDS: diphenhydrAMINE 25 MG CAP PO PRN ×2 (02:14→10:21)
--- NOTE | 2018-03-15 06:36 | PDOC.FM ---
- Subjective Subjective: Ms. Beebe is resting comfortably in bed. No seizures overnight. She does report that after getting the IV steroid last night her rash became acutely worse. - Objective Vital Signs & Weight: Vital Signs (12 hours) Temp Pulse Resp BP Pulse Ox 03/15/18 04:00 98.4 F 80 18 109/68 97 03/15/18 00:00 98.5 F 97 18 114/73 97 03/14/18 20:00 98.1 F 83 18 113/68 98 Weight Weight 112.945 kg Result Diagrams: 03/14/18 01:46 03/14/18 01:46 Phys Exam - Physical Examination Constitutional: NAD HEENT: moist MMs, oral pharynx no lesions Neck: no nodes Musculoskeletal: no edema Neurological: non-focal, moves all 4 limbs Psychiatric: normal affect Skin: no rash Dx/Plan (1) Complex partial seizures Code(s): G40.209 - LOCAL-REL SYMPTC EPI W CMPLX PRT SEIZ,NOT NTRCT,W/O STAT EPI Status: Acute Qualifiers: Epilepsy type: partial symptomatic (2) Encounter for monitoring Dilantin therapy Code(s): Z51.81 - ENCOUNTER FOR THERAPEUTIC DRUG LEVEL MONITORING; Z79.899 - OTHER BOWL SANDER (CURRENT) DRUG THERAPY Status: Acute - Plan Plan: complex partial seizure disorder - no seizures since arriving at hospital, s/p 1g keppra, 1mg ativan - increased home dose keppra to 2500 BID, ativan prn for seizures - neurology consulted from ED, appreciate recs - seizure precautions Dilantin reaction - non toxic level in ED - DC dilantin, continue to monitor - s/p 125 methylprednisone, reaction- would prefer no steroid on DC code: full ppx: lovenox Dispo: DC home today with new keppra dose Addendum - Attending - Attending Attestation Date/Time: 03/15/18 [id number] I personally evaluated the patient and discussed the management with Dr. Hair. I agree with the History, Examination, Assessment and Plan documented above with any addition or exceptions noted below. The patient was seen by neurology who adjusted her keppra dose. Pt had no seizures overnight. Will d/c home and she will follow-up with neurology outpt.
[2018-03-15 07:42] VITALS: TEMP 98
[2018-03-15] MEDS: levETIRAcetam 500 MG TAB PO SCH (08:38)
[2018-03-15] MEDS ORDERED: Enoxaparin Sodium 40 MG/0.4 ML SYRINGE SC SCH (09:00)
[2018-03-15 11:36] VITALS: BP 114/69
--- NOTE | 2018-03-16 12:09 | DIS ---
DATE OF ADMISSION: 03/14/2018 DATE OF DISCHARGE: 03/15/2018 RESIDENT: Chris Hair DO. ADMITTING ATTENDING: Ameena Jerez MD. DISCHARGE ATTENDING: Ameena Jerez MD. CONSULTS: Neurology, John Overton MD. PROCEDURES PERFORMED: None. PRIMARY DIAGNOSIS: Complex partial seizures. SECONDARY DIAGNOSIS: Allergic reaction to Dilantin. DISCHARGE MEDICATIONS: 1. Lorazepam 1 mg p.o. t.i.d. p.r.n. 2. Tylenol 650 mg p.o. q.4 hours p.r.n. 3. Keppra 2500 mg p.o. b.i.d. DISCONTINUED MEDICATIONS: 1. Keppra 1250 mg p.o. b.i.d. 2. Dilantin 300 mg p.o. b.i.d. HISTORY OF PRESENT ILLNESS AND HOSPITAL COURSE: Ms. Beebe is a 17-year-old female with a past medical history significant for complex partial seizures diagnosed in December of this year, who presented to the ED with breakthrough seizures on her current medication regimen. She reported that last night, she had 3 witnessed seizures and a longer postictal state than witnessed in the past, so her friend decided to bring her into the emergency department. She also has been noticing throat pain, swelling, and itching for the past week. She thought it was the Dilantin that was started approximately a week ago, so she stopped that at this time. She denied any new headache, visual changes, weakness, numbness, tingling, fevers, chills, or difficulty ambulating at that time. In the emergency department, she was given Benadryl, Ativan, Keppra, Tylenol, Zofran, and 1 L of normal saline, and Neurology was consulted. Dilantin was discontinued. The patient was given steroids, to which she had a reaction too. I did not desire p.o. steroids on discharge. Neurology recommended doubling of Keppra dose, and she was discharged on that. On medications, she did not have seizures during her hospital stay here. DISPOSITION: Stable. DISCHARGE INSTRUCTIONS: LOCATION: Home. DIET: Regular. ACTIVITY: As tolerated. FOLLOWUP: Follow up with neurologist at [facility] as soon as possible and PCP established with [facility] in the next 1 to 2 weeks for control options. Job ID: [id number]
--- NOTE | 2018-03-16 23:30 | EKG ---
Test Reason : Blood Pressure : / mmHG Vent. Rate : 119 BPM Atrial Rate : 119 BPM P-R Int : 146 ms QRS Dur : 080 ms QT Int : 302 ms P-R-T Axes : 042 012 018 degrees QTc Int : 424 ms Sinus tachycardia Possible Left atrial enlargement Low voltage QRS Borderline ECG Confirmed by TITA CHAVEZ DO ([id number]), senior technical editor ISIRDO TORRES ([id number] on 03/16/2018 11:29:32 PM Referred By: Confirmed By:TITA CHAVEZ DO
== END 2018-03-15 15:25 | disposition home or self-care (01) | DRG 101 ==
LOC: ERS 01:18 → EEVIPCON 05:37 → ERHOLD 05:37 → OBSVTOIN 05:37 → 2SE 14:13
PROVIDERS: ADMIT Internal Medicine; ATTEND Family Medicine
DX: G40.209 Localization-related (focal) (partial) symptomatic epilepsy and epileptic syndromes with complex partial seizures, not intractable, without status epilepticus (principal); F41.9 Anxiety disorder, unspecified; T42.0X5A Adverse effect of hydantoin derivatives, initial encounter
CPT/HCPCS: 36416; 71045; 80053; 80177; 80185; 81003; 81025; 84702; 85025; 87804; 93005; 96361; 96365; 96375; J1650; J1953; J2060; J2405; J2930; J7050; Q0162